=== PATIENT | male | born 1980 | race African-American/Black ===

== ENCOUNTER 2016-11-16 02:00 | Emergency (ER) | payer OTHER | END 2016-11-16 04:47 | disposition home or self-care (01) | LOC: FER 02:00 | DX: A08.4 Viral intestinal infection, unspecified (principal); E86.0 Dehydration | CPT/HCPCS: 71020; 87804; 87899; J2405 ==

== ENCOUNTER 2017-01-20 14:12 | Emergency (ER) | payer OTHER | END 2017-01-20 17:07 | disposition home or self-care (01) | LOC: FER 14:12 | DX: R07.9 Chest pain, unspecified (principal); M54.9 Dorsalgia, unspecified; F41.9 Anxiety disorder, unspecified; Z88.0 Allergy status to penicillin | CPT/HCPCS: 71020; 93005 ==